=== PATIENT | female | born 2000 | race Caucasian/White ===

== ENCOUNTER 2024-01-29 19:25 | Emergency (ER) | payer OTHER ==
[~2024-01-29] VITALS: Ht 165.1 cm; Wt 56.7 kg
[2024-01-29 19:36] VITALS: BP 109/63; PULSE 108; RESP 18; TEMP 97.4; O2SAT 98
[2024-01-29] MEDS ORDERED: KETOROLAC 60 MG/2 ML VIAL IM ONE (21:08)
[2024-01-29] MEDS: KETOROLAC 60 MG/2 ML VIAL IM ONE (21:12)
[2024-01-29] MEDS ORDERED: IBUP-2213 PO (21:20)
[2024-01-29 21:24] VITALS: BP 109/63; PULSE 108; RESP 18; TEMP 97.4; O2SAT 98
== END 2024-01-29 21:24 | disposition home or self-care (01) ==
LOC: MED 19:25
DX: S00.83XA Contusion of other part of head, initial encounter (principal); R10.9 Unspecified abdominal pain; Z98.890 Other specified postprocedural states; W22.8XXA Striking against or struck by other objects, initial encounter; Y93.89 Activity, other specified; Y92.89 Other specified places as the place of occurrence of the external cause; Y99.8 Other external cause status
CPT/HCPCS: 81025; 96372; 99283; J1885